=== PATIENT | female | born 1965 | race Caucasian/White ===

== ENCOUNTER 2017-08-16 07:41 | Day surgery (SDC) | payer OTHER ==
[2017-08-15 14:28] VITALS: BMI 34.4
[2017-08-16] VITALS (14 sets, daily range): BP systolic 114–137; BP diastolic 65–78; PULSE 58–64; RESP 15–21; Ht 157.5 cm; Wt 88.5 kg
[~2017-08-16] VITALS: Ht 157.5 cm; Wt 88.5 kg
--- NOTE | 2017-08-16 09:38 | RADRPT ---
PROCEDURE: XR Chest. CLINICAL INDICATION: Preoperative TECHNIQUE: Single frontal view of the chest was obtained COMPARISON: None FINDINGS: The heart and mediastinum are within normal limits. The lungs are clear. There is no pleural effusion or pneumothorax. RPTAT: AA IMPRESSION: No acute disease. .Christophe Alcazar MD, Date Time Electronically viewed and signed by .Christophe Alcazar MD, on 08/16/2017 09:37 .S/
[2017-08-16] MEDS ORDERED: LOSA100T7 PO (09:55)
[2017-08-16] MEDS ORDERED: METO-336 PO (09:55)
[2017-08-16] MEDS ORDERED: LEVO75TA5 PO (09:57)
[2017-08-16] MEDS ORDERED: CHOL100062 PO (09:58)
[2017-08-16 10:09] LABS: BASOPHILS % 0.4 % (0.0-2.0); EOSINOPHILS # 0.4 10^3/ul (0.0-0.5); EOSINOPHILS % 6.8 % (0.0-7.0); HEMATOCRIT 39.9 % (37.0-47.0); HEMOGLOBIN 13.7 g/dl (12.0-16.0); LYMPHOCYTES # 1.7 10^3/ul (0.8-2.9); LYMPHOCYTES % 30.3 % (15.0-51.0); MEAN CORPUSCULAR HEMOGLOBIN 32.2 pg (29.0-33.0); MEAN CORPUSCULAR HGB CONC 34.3 g/dl (32.0-37.0); MEAN CORPUSCULAR VOLUME 93.9 fl (82.0-101.0); MEAN PLATELET VOLUME 12.5 fl (7.4-10.4); MONOCYTE # 0.5 10^3/ul (0.3-0.9); MONOCYTES % 8.2 % (0.0-11.0); NEUTROPHILS % 54.1 % (39.0-77.0); PLATELET COUNT 163 10^3/UL (140-415); RED BLOOD COUNT 4.25 10^6/ul (4.20-5.40); WHITE BLOOD COUNT 5.6 10^3/ul (4.8-10.8)
[2017-08-16 10:38] LABS: INR 1.08; PT RATIO 1.1
[2017-08-16 10:39] LABS: PARTIAL THROMBOPLASTIN TIME 27.2 Sec (25.0-35.0)
[2017-08-16 10:42] LABS: CHOL/HDL RATIO 2.5 RATIO
[2017-08-16 10:43] LABS: CALCIUM 9.4 mg/dl (8.4-10.2); CREATININE 0.54 mg/dl (0.44-1.00); POTASSIUM 3.8 mmol/L (3.5-5.1)
[2017-08-16] MEDS ORDERED: HEPARIN 1000 UNITS/ML 10 ML INJ ONE (10:57)
[2017-08-16] MEDS ORDERED: NITROGLYCERIN (IC) 100 MCG/ML INJ ONE (10:57)
[2017-08-16] MEDS ORDERED: IODIXANOL LOCM 100 ML BTL ONE (10:57)
[2017-08-16] MEDS ORDERED: MIDAZOLAM 1 MG/ML 2 ML INJ ONE (10:57)
[2017-08-16] MEDS ORDERED: LIDOCAINE 1% (MDV) 20 ML INJ ONE (10:57)
[2017-08-16] MEDS ORDERED: VERAPAMIL 5 MG INJ ONE (10:57)
[2017-08-16] MEDS ORDERED: FENTAnyl 50 MCG/ML VIAL ONE (10:58)
[2017-08-16] MEDS ORDERED: SOD CHLORIDE 0.9% 1,000 ML IV SCH (12:08)
--- NOTE | 2017-08-16 12:08 | SIPON ---
Date/Time of Note Date/Time of Note DATE: 08/16/17 TIME: 12:05 Operative Report Preoperative Diagnosis 1.Chest pain 2.abnl mpi Postoperative Diagnosis 1.Non-obstructive cad Operation/Procedure Performed 1.[facility] Surgeon see signature line office administrative assistant 1.Yobany Anesthesia: moderate sedation Estimated blood loss: minimal Transfusion Required none Specimen NA Grafts/Implants none Complications none HARMONY SALGADO Aug 16, 2017 12:08
[2017-08-16] MEDS ORDERED: AL HYDROX/MG HYDROX/SIMETH 30 ML CUP PO PRN (12:30)
[2017-08-16] MEDS ORDERED: ONDANSETRON 4 MG INJ IV PRN (12:30)
[2017-08-16] MEDS ORDERED: morphine 2 MG INJ IV PRN (12:30)
[2017-08-16] MEDS ORDERED: ACETAMINOPHEN 325 MG TAB PO PRN (12:30)
--- NOTE | 2017-08-16 12:34 | CARRPT ---
DATE OF PROCEDURE: TYPE OF PROCEDURE: 1. Left heart catheterization. 2. Coronary angiography. 3. Moderate conscious sedation. ATTENDING PHYSICIAN: Harmony Meyers MD. REFERRING PHYSICIAN: Dr. Kena Calzada. INDICATION: Chest pain with positive stress test findings for ischemia. TYPE OF ANESTHESIA: Conscious local. BRIEF HISTORY: Ms. Scott is a 51-year-old female with history of hypertension who initially present ed with complaints of substernal chest pain. The patient subsequently underwent a cardiac stress te st revealing positive ischemia. Given these findings along with ongoing symptoms, the patient has b een referred for left heart catheterization to assess for the possibility of significant obstructive coronary artery disease lending to symptoms of chest pain and subsequent positive stress test findi ngs. DESCRIPTION OF PROCEDURE: After informed consent was obtained, the patient was brought to the [facility] cardiac catheterization lab where her right radial area was prepped and drap ed in sterile fashion. Lidocaine 2% was infiltrated into the right radial area in order to achieve adequate anesthesia. Using the modified Seldinger technique, the patient had her right radial arter y was cannulated and a 6-Comoran arterial sheath was placed. A 6-Comoran JL3.5 catheter was used to c annulate the left main coronary ostium. With contrast injection, multiple views of the left coronar y arterial system were obtained. JL3.5 with a guidewire and a JR4 was used in attempt to cannulate the right coronary arterial ostium unsuccessfully and this was exchanged for a Álvaro right carbon plant grinder ior where we were able to cannulate the right coronary arterial ostium. With contrast injection, mu ltiple views of the left coronary arterial system were obtained. Álvaro right was removed, a 6-Fr ench pigtail was passed down the ascending aorta to LV, left ventricular end-diastolic pressure was measured. Using a power injector, 20 mL of contrast were injected, pulled back across the aortic va lve to assess for significant gradient, which there was not and removed. Subsequently, this complet ed the procedure. The patient's sheath was removed. TR band was applied. There were no noted comp lications. FINDINGS: Coronary angiography: Left main 4 mm with ostial 20% to 30% stenosis with good reflux, did have spa sm initially, treated with nitroglycerin. LAD proximally is a 3.5 mm vessel and has an approximatel y 20% to 30% ostial stenosis. The remainder of the LAD thereafter is free of significant focal sten oses and goes around the apex, mid branching diagonal 2 mm vessel with no significant focal stenoses . The circumflex proximally is a 4-mm vessel and has no significant stenoses throughout its entiret y, has several mid branching obtuse marginals, all sub 2 mm vessels with no significant focal stenos es and has a distal branching obtuse marginal 3 mm with 20% stenosis. The right coronary artery pro ximally is a 3.5 mm vessel and has an ostial 30% stenosis. The remainder of the right coronary félix ry is free of significant focal stenoses. It is a dominant vessel, gives off a 2 mm PDA and a 2 mm posterolateral branch each with no significant focal stenoses. Left ventriculogram revealed left ventricular ejection fraction of 65%. Left ventricular end diasto lic pressure of 21 pre-LV gram, 23 post-LV gram. No significant aortic stenosis by gradient, 1+ angella ral regurgitation. TOTAL FLUOROSCOPY TIME: 9.1 minutes. TOTAL CONTRAST: 130 mL. IMPRESSION: 1. Mild to moderate nonobstructive coronary artery disease. 2. Vasospasm of left main treated with nitroglycerin. 3. Elevated left heart filling pressures. 4. No significant aortic stenosis by gradient. 5. 1+ mitral regurgitation. RECOMMENDATIONS: In light of procedure and findings would: 1. Maximize medical management including starting the patient on nitrates plus/minus calcium channe l sheldon for treatment of possible vasospastic disease. 2. Maximize medical management. 3. Aggressive risk factor reduction. 4. Patient will be admitted to the same day surgery center for post-cath observation and continued management of presenting symptoms with probable discharge later this afternoon. Dictated By: HARMONY ACKERMAN/COOPER Conf#: [id number] DID#: [id number] CC: KENA CALZADA MD;*EndCC*
--- NOTE | 2017-08-16 13:19 | RADRPT ---
Vent Rate: 61 bpm RR Interval: 0 msec AK Interval: 168 msec QRS Duration: 84 msec QT Interval: 410 msec QTC Interval: 412 msec P-R-T Placedo: 39 - -15 - 48 degrees Normal sinus rhythm Normal ECG Electronically Signed By: William Suazo [id number]
== END 2017-08-16 17:15 | disposition home or self-care (01) ==
LOC: SDS 07:41
PROVIDERS: ATTEND Internal Medicine
DX: I25.10 Atherosclerotic heart disease of native coronary artery without angina pectoris (principal); I35.0 Nonrheumatic aortic (valve) stenosis; I34.0 Nonrheumatic mitral (valve) insufficiency; E03.9 Hypothyroidism, unspecified
CPT/HCPCS: 71010; 80048; 80061; 85025; 85610; 85730; 93005; 93458; J1644; J2250; J3010; Q9967

== ENCOUNTER 2017-09-13 10:11 | Day surgery (SDC) | payer OTHER ==
[~2017-09-13] VITALS: Ht 154.9 cm; Wt 88.1 kg
[~2017-09-13 10:11] MED LIST: CHOL100062 PO; LEVO75TA5 PO; LOSA100T7 PO; METO-336 PO
[2017-09-13] MEDS ORDERED: LIDOCAINE 2% (SDV) 5 ML INJ ONE (11:36)
[2017-09-13] MEDS ORDERED: PROPOFOL 40 ML ONE (11:36)
[2017-09-13 12:00] VITALS: BP 163/85; PULSE 56; RESP 14
--- NOTE | 2017-09-13 12:59 | OPPN ---
Date/Time of Note Date/Time of Note DATE: 09/13/17 TIME: 12:58 Operative Report Preoperative Diagnosis Screening colonoscopy Postoperative Diagnosis Poor prep making the exam inadequate Internal hemorrhoid Operation/Procedure Performed Colonoscopy Surgeon see signature line urgent care physician assistant None Anesthesia: MAC Estimated blood loss: none Transfusion Required none Specimen None Grafts/Implants none Complications none MARGARET VEGA MD Sep 13, 2017 12:59
[2017-09-13 13:25] VITALS: BP 155/96; RESP 20
--- NOTE | 2017-09-14 13:25 | GILP ---
DATE OF PROCEDURE: NAME OF PROCEDURE: Colonoscopy. SURGEON: Margaret Rust MD PREOPERATIVE DIAGNOSIS: Screening colonoscopy. POSTOPERATIVE DIAGNOSES 1. Colonoscopy all the way to the cecum. 2. Poor prep making the exam very inadequate. 3. Internal hemorrhoids. INDICATION FOR THE PROCEDURE: Ms. Fiona Scott is a 51-year-old female patient who was scheduled for screening colonoscopy. The procedure and possible complications were well explained to the patient. The patient understood and consented to the procedure. DESCRIPTION OF PROCEDURE: Under the influence of anesthesia, the colonoscope was carefully introduc ed in the rectum and under direct vision, it was advanced all the way to the cecum. FINDINGS: The patient had poor prep making the exam very inadequate. The patient was noted to have internal hemorrhoids. She tolerated the procedure very well and there was no complication from the procedure. At the end of the procedure, she was awake with stable vital signs and she was discharged home to the care of h er family. IMPRESSION: Please see postoperative diagnoses. PLAN: The patient will need repeat colonoscopy with better preparation. Dictated By: MARGARET MATHIAS/COOPER Conf#: [id number] DID#: [id number]
== END 2017-09-13 14:19 | disposition home or self-care (01) ==
LOC: GIL 10:11
PROVIDERS: ATTEND Internal Medicine Gastroenterology
DX: Z12.11 Encounter for screening for malignant neoplasm of colon (principal); K64.8 Other hemorrhoids; E03.9 Hypothyroidism, unspecified; I10 Essential (primary) hypertension
CPT/HCPCS: 84703